=== PATIENT | male | born 1955 | race Caucasian/White ===

== ENCOUNTER 2020-02-19 14:29 | Inpatient (IN) | payer BC ==
[~2020-02-19] VITALS: Ht 175.3 cm; Wt 81.7 kg
[2020-02-19 15:39] LABS: BASOPHILS ABSOLUTE AUTO 0.03 K/mm3 (0.00-0.23); BASOPHILS PERCENT AUTO 0 % (0-2); EOSINOPHILS PERCENT AUTO 0 % (0-6); Hematocrit 19.7 % (37.0-53.0); Hemoglobin 6.3 g/dL (13.5-17.5); IMMATURE GRAN ABSOLUTE AUTO 0.09 K/mm3 (0.00-0.10); IMMATURE GRAN PERCENT AUTO 1 % (0-1); LYMPHOCYTES ABSOLUTE AUTO 1.42 K/mm3 (0.84-5.20); LYMPHOCYTES PERCENT AUTO 13 % (21-46); MONOCYTES ABSOLUTE AUTO 0.67 K/mm3 (0.16-1.47); MONOCYTES PERCENT AUTO 6 % (4-13); Mean Corpuscular HGB 30.6 pg (26.0-34.0); Mean Corpuscular Volume 96 fL (80-100); Mean Platelet Volume 10.4 fL (9.1-12.4); NEUTROPHILS ABSOLUTE AUTO 9.04 K/mm3 (1.96-9.15); NEUTROPHILS PERCENT AUTO 80 % (41-73); NRBC ABSOLUTE 0.05 K/mm3 (0.00-0.02); NRBC Auto 0.4 /100 WBC (0.0-0.2); Platelet Count 259 K/mm3 (150-400); RDW Coefficient Variation 12.4 % (11.7-14.2); RDW Standard Deviation 43.1 fL (35.1-46.3); Red Blood Cell Count 2.06 M/mm3 (4.30-5.90); White Blood Cell Count 11.25 K/mm3 (4.00-11.30)
[2020-02-19 15:53] LABS: International Normalized Ratio 1.02; Prothrombin Time Results 10.9 Sec (9.7-11.5)
[2020-02-19 15:58] LABS: Alanine Aminotransfer (ALT/SGP 35 U/L (12-78); Albumin, Blood 3.3 g/dL (3.4-5.0); Albumin/Globulin Ratio 1.3 (0.8-1.8); Alk Phos 56 U/L (50-136); Anion Gap 8 mmol/L (6-16); Aspartate Aminotrans (AST/SGOT 21 U/L (12-37); Bilirubin, Total 0.7 mg/dL (0.1-1.0); Blood Urea Nitrogen 43 mg/dL (8-24); Bun/Creatinine Ratio 37.1 (12.0-20.0); CO2, Blood 25 mmol/L (21-32); Calcium, Blood 9.7 mg/dL (8.5-10.1); Chloride, Blood 101 mmol/L (98-108); Creatinine, Blood 1.16 mg/dL (0.60-1.20); Globulin, Blood 2.5 g/dL (2.2-4.0); Glomerular Filtration Rate >60 (60-); Glucose, Blood 127 mg/dL (70-99); Potassium, Blood 3.3 mmol/L (3.5-5.5); Sodium, Blood 134 mmol/L (136-145); Total Protein, Blood 5.8 g/dL (6.4-8.2)
[2020-02-19] MEDS ORDERED: VALS80 PO (16:49)
[2020-02-19] MEDS ORDERED: RIZATRIPTAN10 MG SL (16:50)
[2020-02-19] MEDS ORDERED: AMLO10 PO (16:51)
[2020-02-19] MEDS ORDERED: ATOR20 PO (19:51)
[2020-02-19 20:50] LABS: Source, Urine Clean Catch
[2020-02-19 20:54] LABS: Appearance, Urine Clear (Clear); Bilirubin, Urine Neg (Neg); Blood, Urine Neg (Neg); Color, Urine Yellow (P-Yellow); Glucose Qualitative, Urine Neg (Neg); Ketones, Urine Neg (Neg); Leukocyte Esterase, Urine Neg (Neg); Nitrite, Urine Neg (Neg); Protein, Urine Neg (Neg); Specific Gravity, Urine 1.015 (1.003-1.022); Urobilinogen, Urine NORM (Normal)
[2020-02-20 01:10] LABS: Hematocrit 19.6 % (37.0-53.0); Hemoglobin 6.6 g/dL (13.5-17.5); Mean Corpuscular HGB 31.1 pg (26.0-34.0); Mean Corpuscular HGB Conc 33.7 g/dL (31.5-36.5); Mean Corpuscular Volume 93 fL (80-100); Mean Platelet Volume 10.3 fL (9.1-12.4); NRBC ABSOLUTE 0.12 K/mm3 (0.00-0.02); NRBC Auto 0.9 /100 WBC (0.0-0.2); Platelet Count 166 K/mm3 (150-400); RDW Coefficient Variation 15.1 % (11.7-14.2); RDW Standard Deviation 50.4 fL (35.1-46.3); Red Blood Cell Count 2.12 M/mm3 (4.30-5.90)
--- NOTE | 2020-02-20 04:23 | NUR ---
SHIFT SUMMARY (ADMIT) PT WAS NEW ER ADMIT THIS SHIFT (1928), NO ACUTE CHANGES SINCE ASSUMING CARE, ONLY C/O DIZZINESS W/AMBULATION, DR HERNANDEZ IN TO SEE PT THIS SHIFT, INDEP W/URINAL, A&O, USES CALL LIGHT WHEN NEEDED, SLEPT T/O THE NIGHT & AT THIS TIME, CALL LIGHT IN REACH, WILL CONT TO MONITOR UNTIL REPORT GIVEN TO DAY RN.
[2020-02-20 07:15] LABS: Mean Corpuscular HGB 30.2 pg (26.0-34.0); Mean Corpuscular HGB Conc 32.9 g/dL (31.5-36.5); Mean Corpuscular Volume 92 fL (80-100); Mean Platelet Volume 10.4 fL (9.1-12.4); NRBC Auto 0.9 /100 WBC (0.0-0.2); Platelet Count 162 K/mm3 (150-400); RDW Coefficient Variation 16.3 % (11.7-14.2); Red Blood Cell Count 1.82 M/mm3 (4.30-5.90); White Blood Cell Count 10.66 K/mm3 (4.00-11.30)
[2020-02-20 07:29] LABS: Hematocrit 16.7 % (37.0-53.0); Hemoglobin 5.5 g/dL (13.5-17.5)
[2020-02-20 07:44] LABS: Alanine Aminotransfer (ALT/SGP 17 U/L (12-78); Albumin/Globulin Ratio 1.2 (0.8-1.8); Alk Phos 33 U/L (50-136); Anion Gap 6 mmol/L (6-16); Aspartate Aminotrans (AST/SGOT 13 U/L (12-37); Bilirubin, Total 1.4 mg/dL (0.1-1.0); Blood Urea Nitrogen 45 mg/dL (8-24); Bun/Creatinine Ratio 40.9 (12.0-20.0); CO2, Blood 24 mmol/L (21-32); Calcium, Blood 7.6 mg/dL (8.5-10.1); Chloride, Blood 110 mmol/L (98-108); Globulin, Blood 1.7 g/dL (2.2-4.0); Glomerular Filtration Rate >60 (60-); Glucose, Blood 114 mg/dL (70-99); Potassium, Blood 4.2 mmol/L (3.5-5.5); Sodium, Blood 140 mmol/L (136-145); Total Protein, Blood 3.7 g/dL (6.4-8.2)
[2020-02-20 08:37] LABS: BASOPHILS ABSOLUTE AUTO 0.01 K/mm3 (0.00-0.23); BASOPHILS PERCENT AUTO 0 % (0-2); EOSINOPHILS PERCENT AUTO 0 % (0-6); IMMATURE GRAN ABSOLUTE AUTO 0.18 K/mm3 (0.00-0.10); IMMATURE GRAN PERCENT AUTO 2 % (0-1); LYMPHOCYTES ABSOLUTE AUTO 1.73 K/mm3 (0.84-5.20); LYMPHOCYTES PERCENT AUTO 15 % (21-46); MONOCYTES ABSOLUTE AUTO 1.23 K/mm3 (0.16-1.47); MONOCYTES PERCENT AUTO 11 % (4-13); Mean Corpuscular HGB 30.4 pg (26.0-34.0); Mean Corpuscular HGB Conc 32.9 g/dL (31.5-36.5); Mean Corpuscular Volume 92 fL (80-100); Mean Platelet Volume 10.5 fL (9.1-12.4); NEUTROPHILS ABSOLUTE AUTO 8.35 K/mm3 (1.96-9.15); NEUTROPHILS PERCENT AUTO 73 % (41-73); NRBC ABSOLUTE 0.13 K/mm3 (0.00-0.02); NRBC Auto 1.1 /100 WBC (0.0-0.2); Platelet Count 166 K/mm3 (150-400); RDW Coefficient Variation 16.5 % (11.7-14.2); RDW Standard Deviation 53.6 fL (35.1-46.3); Red Blood Cell Count 1.81 M/mm3 (4.30-5.90)
[2020-02-20 08:43] LABS: Hematocrit 16.7 % (37.0-53.0); Hemoglobin 5.5 g/dL (13.5-17.5)
[2020-02-20 15:27] LABS: Hematocrit 23.9 % (37.0-53.0); Hemoglobin 8.2 g/dL (13.5-17.5); Mean Corpuscular HGB 31.3 pg (26.0-34.0); Mean Corpuscular HGB Conc 34.3 g/dL (31.5-36.5); Mean Corpuscular Volume 91 fL (80-100); Mean Platelet Volume 10.5 fL (9.1-12.4); NRBC ABSOLUTE 0.17 K/mm3 (0.00-0.02); NRBC Auto 1.4 /100 WBC (0.0-0.2); Platelet Count 169 K/mm3 (150-400); RDW Coefficient Variation 15.8 % (11.7-14.2); RDW Standard Deviation 51.1 fL (35.1-46.3); Red Blood Cell Count 2.62 M/mm3 (4.30-5.90)
--- NOTE | 2020-02-20 15:40 | NUR ---
SHIFT SUMMARY PT IS A/O X 4. HE DENIES PAIN. HE DOES REPORT SOME MILD WEAKNESS WITH AMBULATION TO THE TOILET BUT DOES REPORT FEELING BETTER FROM LAST NIGHT. HIS STOOLS REMAIN DARK BROWN TO BLACK AND FORMED. DR BROWNING ORDERED 2 UNITS PRBCS WHICH WERE INFUSED WITH NO ISSUES. HIS V/S REMAIN STABLE. HE HAS BEEN NPO SINCE LUNCH INSTRUCTED BY DR HERNANDEZ. HGB IS TRENDING UP S/P TRANSFUSIONS AND HIS COLOR IS IMPROVING. HIS AND DAUGHTER HAVE BEEN AT THE BEDSIDE. HE IS SCHEDULED FOR A SCOPE THIS AFTERNOON. HE IS ABLE TO MAKE HIS NEEDS KNOWN AND CALLS OFTEN FOR HELP. HIS CALL LIGHT IS IN REACH.
--- NOTE | 2020-02-20 18:15 | NUR ---
02/20/20 1815 Nik Casillas PATIENT DETERMINED TO BE ASA APPROPRIATE FOR PROPOFOL SEDATION PRIOR TO START OF PROCEDURE BY DR. Brady Brennan Placed3-LEAD EKG REVIEWED WITH PHYSICIAN PRIOR TO START OF PROCEDURE.Patient to ENDO 1History, Chart, Medications and Allergies reviewed before start of procedure. MONITOR INTACT WITH CONTINUOUS PULSE OXIMETRY AND INTERMITTENT BP.O2 VIA N/C INTACT THROUGHOUT SEDATION/PROCEDURE.
--- NOTE | 2020-02-20 20:00 | NUR ---
PT RETURNED TO FLOOR AT SHIFT CHANGE. ALERT AND ORIENTED. TRANSFER NURSE VOICED NO NOTED BLEEDING OR H PYLORI DURING PROCEDURE. PT DENIED PAIN. SIGNIFICANT OTHER AT BEDSIDE. [employer]ER AGREED TO CLEAR LIQUIDS AT THIS TIME. MD ORDERS FOR STARTING REG DIET AT [facility]. VSS BP LOW NORMAL. LEGS ELEVATED. WILL MONITOR. CALL LIGHT IN REACH
--- NOTE | 2020-02-20 21:06 | NUR ---
MD IN TO SEE PT AT BEDSIDE, LATER PT STATED MD STATED THEY FOUND AN ULCER. BUT HE STILL WOULD BE OK TO HAVE REG DIET AT [facility]. UP TO BATHROOM WITH WALKER/OBSERVATION. NO C/O VOICED. CALL LIGHT INR EACH
--- NOTE | 2020-02-21 04:34 | NUR ---
SHIFT SUMMARY HAS BEEN RESTING QUIETLY WITH SOME BOUTS OF BEING AWAKE. DENIED PAIN WHEN ASKED. VSS. TOLERATING LIQUIDS WELL. CALL LIGHT IN REACH
[2020-02-21 05:13] LABS: BASOPHILS ABSOLUTE AUTO 0.05 K/mm3 (0.00-0.23); BASOPHILS PERCENT AUTO 1 % (0-2); EOSINOPHILS ABSOLUTE AUTO 0.06 K/mm3 (0.00-0.68); EOSINOPHILS PERCENT AUTO 1 % (0-6); Hematocrit 20.5 % (37.0-53.0); Hemoglobin 6.9 g/dL (13.5-17.5); IMMATURE GRAN ABSOLUTE AUTO 0.36 K/mm3 (0.00-0.10); IMMATURE GRAN PERCENT AUTO 4 % (0-1); LYMPHOCYTES PERCENT AUTO 15 % (21-46); MONOCYTES ABSOLUTE AUTO 0.99 K/mm3 (0.16-1.47); MONOCYTES PERCENT AUTO 11 % (4-13); Mean Corpuscular HGB 31.4 pg (26.0-34.0); Mean Corpuscular HGB Conc 33.7 g/dL (31.5-36.5); Mean Corpuscular Volume 93 fL (80-100); Mean Platelet Volume 10.2 fL (9.1-12.4); NEUTROPHILS ABSOLUTE AUTO 6.44 K/mm3 (1.96-9.15); NEUTROPHILS PERCENT AUTO 69 % (41-73); NRBC ABSOLUTE 0.15 K/mm3 (0.00-0.02); NRBC Auto 1.6 /100 WBC (0.0-0.2); Platelet Count 161 K/mm3 (150-400); RDW Coefficient Variation 16.7 % (11.7-14.2); RDW Standard Deviation 53.1 fL (35.1-46.3)
[2020-02-21 05:39] LABS: Anion Gap 3 mmol/L (6-16); Blood Urea Nitrogen 20 mg/dL (8-24); Bun/Creatinine Ratio 17.4 (12.0-20.0); CO2, Blood 28 mmol/L (21-32); Calcium, Blood 7.6 mg/dL (8.5-10.1); Chloride, Blood 112 mmol/L (98-108); Creatinine, Blood 1.15 mg/dL (0.60-1.20); Glomerular Filtration Rate >60 (60-); Glucose, Blood 106 mg/dL (70-99); Potassium, Blood 3.6 mmol/L (3.5-5.5); Sodium, Blood 143 mmol/L (136-145)
--- NOTE | 2020-02-21 06:16 | NUR ---
AM LABS - HGB 6.9 THIS AM, NOTIFIED AND ORDERED 1 UNIT PRBC TO BE TRANSFUSED.
[2020-02-21 13:24] LABS: Hematocrit 31.4 % (37.0-53.0); Hemoglobin 10.7 g/dL (13.5-17.5)
--- NOTE | 2020-02-21 15:49 | NUR ---
SHIFT SUMMARY PT IS A/O X 4 WITH NO C/O PAIN. HE IS ABLE TO SELF AMBULATE TO THE TOILET. HIS COLOR IS IMPROVED TODAY AND HE NO LONGER C/O WEAKNESS. DR BROWNING ORDERED 2 UNITS OF PRBCS THIS MORNING BOTH OF WHICH INFUSED WITH NO ISSUES. HIS HGB THIS MORNING WAS 6.9 AND THIS AFTERNOON AFTER THE TRANSFUSION WAS 10.7. DR BROWNING WAS NOTIFIED OF THE RESULTS AND REPORTS SHE PLANS TO KEEP HIM HERE OVER NIGHT TO MONITOR HIS LABS AND MAKE SURE HIS HGB CONTINUES TO TREND UP. THE PT IS AWARE OF THIS BUT IS STILL ANXIOUS TO LEAVE HE LIVES IN [place] AND WOULD LIKE TO GET HOME [place]. HIS AND DAUGHTER HAVE BEEN AT THE BEDSIDE MOST OF THE DAY. HE WAS SET UP AND ASSISTED WITH A SHOWER TODAY AND HAS A GOOD APPETITE. DR BROWNING SAID IT WAS OK TO ADVANCE HIS DIET TOLERATED AND HE IS TOLERATING A REGULAR DIET WELL. HE IS ABLE TO MAKE HIS NEEDS KNOWN AND CALLS FOR HELP WHEN NEEDED.
--- NOTE | 2020-02-21 19:50 | NUR ---
RECEIVED BEDSIDE REPORT FROM FRANK MORA. WILL MONITOR AND PROVIDE CARE T/O SHIFT. CALL LT IN REACH.
--- NOTE | 2020-02-21 21:18 | NUR ---
PT QUIETLY WATCHING TV. DENIES NEEDS. CALL LT IN REACH. WILL MONITOR.
--- NOTE | 2020-02-21 23:30 | NUR ---
PT RESTING QUIETLY. CALL LT IN REACH.
--- NOTE | 2020-02-22 04:10 | NUR ---
SHIFT SUMMARY: NORMAN RUEDA SAW PT AT BEGINNING OF SHIFT, NO NEW ORDERS RECEIVED. A/O. INDEPENDENT. ON RA. NO COMPLAINTS. PT RESTED WELL T/O SHIFT. WILL CONTINUE TO MONITOR AND PROVIDE CARE UNTIL SHIFT REPORT.
[2020-02-22 05:25] LABS: BASOPHILS ABSOLUTE AUTO 0.06 K/mm3 (0.00-0.23); BASOPHILS PERCENT AUTO 1 % (0-2); EOSINOPHILS ABSOLUTE AUTO 0.11 K/mm3 (0.00-0.68); EOSINOPHILS PERCENT AUTO 2 % (0-6); Hematocrit 27.3 % (37.0-53.0); Hemoglobin 9.1 g/dL (13.5-17.5); IMMATURE GRAN ABSOLUTE AUTO 0.28 K/mm3 (0.00-0.10); IMMATURE GRAN PERCENT AUTO 4 % (0-1); LYMPHOCYTES ABSOLUTE AUTO 1.79 K/mm3 (0.84-5.20); LYMPHOCYTES PERCENT AUTO 24 % (21-46); MONOCYTES PERCENT AUTO 12 % (4-13); Mean Corpuscular HGB 31.5 pg (26.0-34.0); Mean Corpuscular HGB Conc 33.3 g/dL (31.5-36.5); Mean Corpuscular Volume 95 fL (80-100); Mean Platelet Volume 9.9 fL (9.1-12.4); NEUTROPHILS ABSOLUTE AUTO 4.31 K/mm3 (1.96-9.15); NEUTROPHILS PERCENT AUTO 58 % (41-73); NRBC Auto 1.3 /100 WBC (0.0-0.2); Platelet Count 182 K/mm3 (150-400); RDW Coefficient Variation 16.5 % (11.7-14.2); RDW Standard Deviation 50.9 fL (35.1-46.3); Red Blood Cell Count 2.89 M/mm3 (4.30-5.90); White Blood Cell Count 7.45 K/mm3 (4.00-11.30)
[2020-02-22] MEDS ORDERED: PANT40 PO (09:37)
--- NOTE | 2020-02-22 09:52 | NUR ---
DISCHARGE SUMMARY PT DISCHARGED TO HOME. PT A/O, INDEPENDENT PRIOR TO DISCHARGE. PT UP WALKING IN THE HALLWAY PRIOR TO DISCHARGE. PT REFUSES WHEELCHAIR TO VEHICLE STATING HE HAS BEEN WALKING ALREADY. PT PROVIDED WITH DISCHARGE AND MEDICATION INSTRUCTIONS. PT TO MAKE APPOINTMENT WITH PCP UPON RETURNING HOME TO [place]. PT FAMILY IN THE ROOM WITH PATIENT UPON DISCHARGE.
== END 2020-02-22 09:59 | disposition home or self-care (01) | DRG 378 ==
LOC: ER 14:29 → MEDS 14:30 → ENPENDDIS 02-22 09:33 → MEDS 02-22 09:59
PROVIDERS: Internal Medicine; Internal Medicine Gastroenterology; Physician Assistant; ADMIT Internal Medicine
PROC: 30233N1 Transfusion of Nonautologous Red Blood Cells into Peripheral Vein, Percutaneous Approach (ICD-10-PCS; 2020-02-20)
PROC: 0DB68ZX Excision of Stomach, Via Natural or Artificial Opening Endoscopic, Diagnostic (ICD-10-PCS; principal; 2020-02-20 16:00)
PROC: 0D798ZZ Dilation of Duodenum, Via Natural or Artificial Opening Endoscopic (ICD-10-PCS; 2020-02-20 16:00)
DX: K26.4 Chronic or unspecified duodenal ulcer with hemorrhage (principal); D62 Acute posthemorrhagic anemia; E87.1 Hypo-osmolality and hyponatremia; K31.5 Obstruction of duodenum; Z30.09 Encounter for other general counseling and advice on contraception; E87.6 Hypokalemia; I10 Essential (primary) hypertension; G43.909 Migraine, unspecified, not intractable, without status migrainosus; K25.4 Chronic or unspecified gastric ulcer with hemorrhage; T39.395A Adverse effect of other nonsteroidal anti-inflammatory drugs [NSAID], initial encounter; Y92.9 Unspecified place or not applicable
CPT/HCPCS: 36415; 36430; 80048; 80053; 81003; 82272; 85014; 85018; 85025; 85027; 85610; 85730; 86850; 86900; 86901; 86923; 88305; 88342; 96374; 96376; 99285-25; A9270-GY; C1726; C9113; G0378; J1940; J2704; J3480; J7030; J7050; J7120; P9016; U0002